=== PATIENT | female | born 1995 | race Caucasian/White ===

== ENCOUNTER 2025-05-23 22:15 | Emergency (ER) | payer OTHER ==
[~2025-05-23] VITALS: Ht 167.6 cm; Wt 52.2 kg
[2025-05-23 22:30] VITALS: BP 100/61; O2SAT 100
== END 2025-05-24 03:10 | disposition left against medical advice (07) ==
LOC: ER 22:29
DX: H92.09 Otalgia, unspecified ear (principal); Z53.21 Procedure and treatment not carried out due to patient leaving prior to being seen by health care provider
CPT/HCPCS: A4606; A4663

== ENCOUNTER 2025-05-24 10:19 | Emergency (ER) | payer OTHER ==
[~2025-05-24] VITALS: Ht 165.1 cm; Wt 52.2 kg
[2025-05-24 10:23] VITALS: BP_SYST 1
[2025-05-24 11:17] LABS: PLATELET COUNT (AUTO) 171 K/uL (179-408); RED BLOOD CELL COUNT(AUTO) 4.53 MIL/uL (3.63-4.92); RED CELL DISTRIBUTION WIDTH 13.7 % (12.3-17.7); WHITE BLOOD COUNT (AUTO) 5.7 K/uL (3.8-11.8)
[2025-05-24 11:26] LABS: *BILIRUBIN,URIN NEGATIVE (NEGATIVE); *CLARITY,URINE CLEAR (CLEAR); *COLOR,URINE YELLOW (YELLOW); *KETONES,URINE NEGATIVE (NEGATIVE); *PROTEIN,URINE NEGATIVE (NEGATIVE); *UROBILINOGEN,URINE 0.2 E.U./dl (NORMAL); LEUKOCYTE ESTERASE ,URINE NEGATIVE (NEGATIVE); NITRITE, URINE NEGATIVE (NEGATIVE); UGLUCOSE NEGATIVE (NEGATIVE)
[2025-05-24 11:32] LABS: *BLOOD, URINE TRACE (NEGATIVE); *URINE HCG, QUAL NEGATIVE (NEGATIVE)
[2025-05-24 11:33] LABS: CREATININE 0.5 mg/dL (0.6-1.3); SODIUM SERUM 140 mmol/L (136-145); UREA NITROGEN, BLOOD 14 mg/dL (7-18)
[2025-05-24 11:39] LABS: SQUAMOUS EPITHELIAL CELL,UR MODERATE /HPF (NONE SEEN)
[2025-05-24 13:11] VITALS: BP_SYST 1; O2SAT 100
== END 2025-05-24 13:12 | disposition home or self-care (01) ==
LOC: ER 10:19
DX: K11.8 Other diseases of salivary glands (principal); Z90.49 Acquired absence of other specified parts of digestive tract; Z86.2 Personal history of diseases of the blood and blood-forming organs and certain disorders involving the immune mechanism
CPT/HCPCS: 36415; 84703; 85025; A4606; A4663